=== PATIENT | female | born 2000 | race African-American/Black ===

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

== ENCOUNTER 2019-05-21 02:35 | Emergency (ER) | payer SELFPAY ==
[2019-05-21] MEDS ORDERED: TETRACAINE 0.5% OU PRN (03:10)
[2019-05-21] MEDS ORDERED: FUL-GLO OP ONE (03:24)
--- NOTE | 2019-05-21 03:25 | Emergency Department Report ---
ED Eye Problem HPI - General Chief complaint: Eye Problems Stated complaint: LEFT BLEEDING EYE Time Seen by Provider: 05/21/19 03:09 Source: patient Mode of arrival: Ambulatory Limitations: No Limitations - History of Present Illness Initial comments: patient got poked in the left eye by sister 's finger. c/o left eye pain, redness, and improving blurry vision. chief complaint: eye pain, eye redness, eye injury -: Gradual - Related Data Previous Rx's Medication Instructions Recorded Last Taken Type Ondansetron [Zofran Odt] 4 mg PO Q8H PRN #12 tab.rapdis 11/06/15 Unknown Rx Sulfamethoxazole/Trimethoprim 1 each PO BID #10 tablet 11/06/15 Unknown Rx [Bactrim DS TAB] Ibuprofen [Motrin] 600 mg PO Q8H PRN #30 tablet 02/26/18 Unknown Rx HYDROcodone/APAP 5-325 [[place] 1 each PO Q6HR PRN #3 tablet 05/21/19 Unknown Rx 5-325 mg TAB] Polymyxin B Sulf/Trimethoprim 1 drop OP QID #1 bottle 05/21/19 Unknown Rx [Polytrim Eye Drops 58057mdhkr/0.1%] Allergies Allergy/AdvReac Type Severity Reaction Status Date / Time No Known Allergies Allergy Verified 05/06/17 01:27 ED Review of Systems ROS: Stated complaint: LEFT BLEEDING EYE Other details as noted in HPI Comment: All other systems reviewed and negative Eyes: eye pain ENT: denies: ear pain, throat pain Respiratory: denies: cough, orthopnea ED Past Medical Hx - Past Medical History Previous Medical History?: Yes Hx Asthma: Yes - Surgical History Past Surgical History?: No - Social History Smoking Status: Never Smoker Substance Use Type: None - Medications Home Medications: Home Medications Medication Instructions Recorded Confirmed Last Taken Type Ondansetron [Zofran Odt] 4 mg PO Q8H PRN #12 tab.rapdis 11/06/15 05/06/17 Unknown Rx Sulfamethoxazole/Trimethoprim 1 each PO BID #10 tablet 11/06/15 05/06/17 Unknown Rx [Bactrim DS TAB] Ibuprofen [Motrin] 600 mg PO Q8H PRN #30 tablet 02/26/18 Unknown Rx HYDROcodone/APAP 5-325 [[place] 1 each PO Q6HR PRN #3 tablet 05/21/19 Unknown Rx 5-325 mg TAB] Polymyxin B Sulf/Trimethoprim 1 drop OP QID #1 bottle 05/21/19 Unknown Rx [Polytrim Eye Drops 65568lljws/0.1%] ED Physical Exam - General Limitations: No Limitations General appearance: alert, in no apparent distress - Head Head exam: Present: atraumatic, normocephalic - Eye Eye exam: Present: EOMI, conjunctival injection, periorbital swelling - ENT ENT exam: Present: normal exam, normal orophraynx - Neck Neck exam: Present: normal inspection - Respiratory Respiratory exam: Present: normal lung sounds bilaterally - Cardiovascular Cardiovascular Exam: Present: regular rate, normal rhythm - GI/Abdominal GI/Abdominal exam: Present: soft, normal bowel sounds - Extremities Exam Extremities exam: Present: normal inspection - Back Exam Back exam: Present: normal inspection - Neurological Exam Neurological exam: Present: alert, oriented X3, CN II-XII intact - Skin Skin exam: Present: warm ED Course Vital Signs 05/21/19 04:16 Pulse Rate 72 Respiratory 16 Rate Blood Pressure 98/64 [Left] O2 Sat by Pulse 100 Oximetry - Eye Procedure Alcaine Drops Administered: Yes Eye FB Removal: other Eye Irrigated w/ Saline (ccs): 30 Cyclogel 2 Drops Administered: left eye Progress: fluorescin uptake, moderate abrasion, Critical care attestation.: If time is entered above; I have spent that time in minutes in the direct care of this critically ill patient, excluding procedure time. ED Disposition Clinical Impression: Corneal abrasion Qualifiers: Encounter type: initial encounter Laterality: left Qualified Code(s): S05.02XA - Injury of conjunctiva and corneal abrasion without foreign body, left eye, initial encounter Disposition: DC- TO HOME OR SELFCARE Is pt being admited?: No Does the pt Need Aspirin: No Condition: Stable Instructions: Corneal Abrasion (ED) Prescriptions: HYDROcodone/APAP 5-325 [[place] 5-325 mg TAB] 1 each PO Q6HR PRN #3 tablet PRN Reason: Pain , Severe (7-10) Polymyxin B Sulf/Trimethoprim [Polytrim Eye Drops [id number]/0.1%] 1 drop OP QID #1 bottle Referrals: ZURI SHELTON MD [Staff Physician] - 3-[address] [facility] MD BETTY [Primary Care Provider] - 3-5 Days Forms: Work/School Release Form(ED)
[2019-05-21] MEDS ORDERED: IBUPROFEN PO ONE (03:48)
[2019-05-21] MEDS ORDERED: NORCO 5/325 PO ONE (03:54)
[2019-05-21 04:30] VITALS: BP 98/64
== END 2019-05-21 04:16 | disposition home or self-care (01) ==
LOC: ED 02:35
DX: S05.02XA Injury of conjunctiva and corneal abrasion without foreign body, left eye, initial encounter (principal); J45.909 Unspecified asthma, uncomplicated; X58.XXXA Exposure to other specified factors, initial encounter; Y93.89 Activity, other specified; Y92.89 Other specified places as the place of occurrence of the external cause; Y99.8 Other external cause status